=== PATIENT | female | born 1990 | race Caucasian/White ===

== ENCOUNTER 2017-03-09 23:41 | Emergency (ER) | payer BC ==
[~2017-03-09] VITALS: Ht 170.2 cm; Wt 77.4 kg
[~2017-03-09 23:41] MED LIST: URIN1STR71
[2017-03-09 23:42] VITALS: BP 137/78
[2017-03-10 00:32] LABS: HCG UR LOT HCG7030192
[2017-03-10 00:41] LABS: HCG UR OBC PASS
[2017-03-10] MEDS ORDERED: IBUPROFEN 200 MG TABLET ONE (01:36)
== END 2017-03-10 02:45 | disposition home or self-care (01) ==
LOC: ED 23:59
DX: S39.012A Strain of muscle, fascia and tendon of lower back, initial encounter (principal); V49.49XA Driver injured in collision with other motor vehicles in traffic accident, initial encounter; Y93.89 Activity, other specified; Y92.89 Other specified places as the place of occurrence of the external cause; Y99.8 Other external cause status
CPT/HCPCS: 72110; 81003; 81025; 99285

== ENCOUNTER 2017-08-29 09:31 | Emergency (ER) | payer BC, OTHER ==
[~2017-08-29] VITALS: Ht 170.2 cm; Wt 85.2 kg
[2017-08-29] MEDS ORDERED: HYDR-3240 PO (09:58)
[2017-08-29] MEDS ORDERED: GABA300C10 PO (09:58)
[2017-08-29] MEDS ORDERED: CEFTRIAXONE PMX 1GM/50ML 50 ML IV ONE (10:00)
[2017-08-29] MEDS ORDERED: SODIUM CHLORIDE FLUSH 10ML SYR IVF ONE (10:00)
[2017-08-29] MEDS ORDERED: CLINDAMYCIN 300 MG CAPSULE ONE (10:22)
[2017-08-29] MEDS ORDERED: CLINDAMYCIN 300 MG CAPSULE PO ONE (10:30)
[2017-08-29 10:40] VITALS: BP 118/77
== END 2017-08-29 10:44 | disposition home or self-care (01) ==
LOC: ED 10:23
DX: L03.211 Cellulitis of face (principal)
CPT/HCPCS: 99283

== ENCOUNTER 2018-07-30 15:45 | Outpatient (CLI) | payer BC, OTHER ==
[~2018-07-30] VITALS: Ht 170.2 cm; Wt 104.1 kg
[~2018-07-30 15:45] MED LIST changes: +GABA300C10 PO; +HYDR-3240 PO
== END 2018-07-30 17:19 | disposition home or self-care (01) ==
LOC: LDOP 15:45
PROVIDERS: ATTEND Obstetrics & Gynecology
DX: O42.92 Full-term premature rupture of membranes, unspecified as to length of time between rupture and onset of labor (principal); O62.8 Other abnormalities of forces of labor; Z3A.32 32 weeks gestation of pregnancy; R45.4 Irritability and anger
CPT/HCPCS: 59025; 89060; 99211; G0463; Q0114

== ENCOUNTER 2018-08-12 09:08 | Inpatient (IN) | payer OTHER ==
[~2018-08-12] VITALS: Ht 172.7 cm; Wt 105.5 kg
[2018-08-12] MEDS ORDERED: OXYTOCIN 30U/ 0.9% NaCL 500ML 500 ML IV PRN (09:09)
[2018-08-12] MEDS ORDERED: D5%-LACTATED RINGERS 1,000 ML IV SCH (09:09)
[2018-08-12] MEDS ORDERED: OXYTOCIN 30U/ 0.9% NaCL 500ML 500 ML IV ONE (09:09)
[2018-08-12] MEDS ORDERED: METOCLOPRAMIDE 5 MG/ML, 2ML IVPush PRN (09:30)
[2018-08-12] MEDS ORDERED: FENTANYL PF 100 MCG/2ML IV PRN (09:30)
[2018-08-12] MEDS ORDERED: FENTANYL PF 100 MCG/2ML IVPush PRN (09:30)
[2018-08-12] MEDS ORDERED: ONDANSETRON 2MG/ML, 2ML IVPush PRN (09:30)
[2018-08-12] MEDS ORDERED: SODIUM CITRATE/CITRIC ACID 30 ML UDC PO PRN (09:30)
[2018-08-12] MEDS ORDERED: MISOPROSTOL 200 MCG TABLET ONE (09:32)
[2018-08-12] MEDS ORDERED: NEWBORN KIT ONE (09:32)
[2018-08-12] MEDS ORDERED: LIDOCAINE 1%, 20ML ONE (09:32)
[2018-08-12] MEDS ORDERED: OXYTOCIN 30U/ 0.9% NaCL 500ML 500 ML ONE ×3 (09:32→19:20)
[2018-08-12 09:42] LABS: BASOPHILS # (AUTO) 0.01 x10^3/uL (0-0.1); BASOPHILS % (AUTO) 0 % (0-1); EOSINOPHILS # (AUTO) 0.04 x10^3/uL (0-0.4); EOSINOPHILS % (AUTO) 0 % (1-7); LYMPHOCYTES # (AUTO) 2.31 x10^3/uL (1-3.4); LYMPHOCYTES % (AUTO) 22 % (22-44); MD NO; MEAN PLATELET VOLUME 7.5 fL (7.4-10.4); MONOCYTES # (AUTO) 0.91 x10^3/uL (0.2-0.8); MONOCYTES % (AUTO) 9 % (2-9); NEUTROPHILS # (AUTO) 7.26 x10^3/uL (1.8-6.8); NEUTROPHILS % (AUTO) 69 % (42-75); PLATELET COUNT 264 x10^3/uL (130-400); RED BLOOD COUNT 4.22 x10^6/uL (3.82-5.3); RED CELL DISTRIBUTION WIDTH 13.9 % (9.6-15.2)
[2018-08-12 09:43] VITALS: BP 155/81
[2018-08-12] MEDS: LACTATED RINGERS 1,000 ML IV SCH ×2 (10:06→15:14)
[2018-08-12] MEDS ORDERED: FENTANYL PF 100 MCG/2ML ONE (15:07)
[2018-08-12] MEDS ORDERED: LACTATED RINGERS 1,000 ML IV SCH ×2 (15:14→16:25)
[2018-08-12] MEDS ORDERED: FENTANYL/BUPIV./NS/PF 250 ML EPIDCONT SCH ×2 (15:14→16:25)
[2018-08-12] MEDS ORDERED: LACTATED RINGERS 1,000 ML IVBOLUS PRN ×2 (15:30→16:30)
[2018-08-12] MEDS ORDERED: FENTANYL PF 500 MCG, BUPIVACAINE/PF 0.5%, 30ML 62.5 ML in SODIUM CHLORIDE 0.9% 177.5 ML EPIDCONT SCH (15:30)
[2018-08-12] MEDS ORDERED: FENTANYL/BUPIV./NS/PF 250 ML EPIDCONT ONE (15:56)
[2018-08-12] MEDS ORDERED: BUPIVACAINE 0.25% ONE (15:56)
[2018-08-12] MEDS ORDERED: NALOXONE 0.4 MG/ML, 1ML IVPush PRN (16:30)
[2018-08-12] MEDS ORDERED: EPHEDRINE 50 MG/ML, 1ML IVPush PRN (16:30)
[2018-08-12] MEDS: OXYTOCIN 30U/ 0.9% NaCL 500ML 500 ML IV SCH (18:05)
[2018-08-12] MEDS ORDERED: ONDANSETRON 2MG/ML, 2ML IV PRN (18:30)
[2018-08-12] MEDS ORDERED: MISOPROSTOL 200 MCG TABLET PR PRN (18:30)
[2018-08-12] MEDS ORDERED: DOCUSATE 100 MG CAPSULE PO PRN (18:30)
[2018-08-12 21:00] VITALS: BP 119/79
[2018-08-12] MEDS: IBUPROFEN 600 MG TABLET PO PRN (21:24)
[2018-08-12] MEDS: OXYcodone/APAP 5/325MG TABLET PO PRN (23:00)
[2018-08-12 23:30] VITALS: BP 132/70
[2018-08-13 02:32] LABS: BASOPHILS # (AUTO) 0.07 x10^3/uL (0-0.1); BASOPHILS % (AUTO) 1 % (0-1); EOSINOPHILS % (AUTO) 1 % (1-7); LYMPHOCYTES # (AUTO) 2.71 x10^3/uL (1-3.4); LYMPHOCYTES % (AUTO) 17 % (22-44); MD NO; MEAN CORPUSCULAR HEMOGLOBIN 31.1 pg (27.0-34.8); MEAN CORPUSCULAR HGB CONC 34.2 g/dL (32.4-35.8); MEAN CORPUSCULAR VOLUME 91.1 fL (80-100); MEAN PLATELET VOLUME 7.4 fL (7.4-10.4); MONOCYTES # (AUTO) 1.14 x10^3/uL (0.2-0.8); MONOCYTES % (AUTO) 7 % (2-9); NEUTROPHILS # (AUTO) 11.65 x10^3/uL (1.8-6.8); NEUTROPHILS % (AUTO) 74 % (42-75); PLATELET COUNT 224 x10^3/uL (130-400); RED BLOOD COUNT 3.65 x10^6/uL (3.82-5.3); RED CELL DISTRIBUTION WIDTH 13.9 % (9.6-15.2)
[2018-08-13] MEDS: OXYTOCIN 30U/ 0.9% NaCL 500ML 500 ML IV SCH (04:05)
[2018-08-13] MEDS: OXYcodone/APAP 5/325MG TABLET PO PRN ×3 (04:28→15:13)
[2018-08-13] MEDS: IBUPROFEN 600 MG TABLET PO PRN ×2 (04:28→15:13)
[2018-08-13 04:30] VITALS: BP 120/75
[2018-08-13 08:00] VITALS: BP 105/68
[2018-08-13] MEDS ORDERED: PRENATAL VIT/IRON/FA 1 EACH TABLET PO SCH (09:00)
[2018-08-13 11:55] VITALS: BP 130/85
[2018-08-13] MEDS ORDERED: IBUP-1223 PO (17:24)
== END 2018-08-13 19:50 | disposition home or self-care (01) | DRG 807 ==
LOC: LDIP 09:08 → 2NW 19:50
PROVIDERS: ADMIT Obstetrics & Gynecology; ATTEND Obstetrics & Gynecology
PROC: 10E0XZZ Delivery of Products of Conception, External Approach (ICD-10-PCS; principal; 2018-08-12)
PROC: 0HQ9XZZ Repair Perineum Skin, External Approach (ICD-10-PCS; 2018-08-12)
PROC: 10907ZC Drainage of Amniotic Fluid, Therapeutic from Products of Conception, Via Natural or Artificial Opening (ICD-10-PCS; 2018-08-12)
PROC: 10H07YZ Insertion of Other Device into Products of Conception, Via Natural or Artificial Opening (ICD-10-PCS; 2018-08-12)
PROC: 3E0R3BZ Introduction of Anesthetic Agent into Spinal Canal, Percutaneous Approach (ICD-10-PCS; 2018-08-12)
PROC: 00HU33Z Insertion of Infusion Device into Spinal Canal, Percutaneous Approach (ICD-10-PCS; 2018-08-12)
DX: O70.0 First degree perineal laceration during delivery (principal); Z37.0 Single live birth; Z3A.39 39 weeks gestation of pregnancy
CPT/HCPCS: 36415; 85025; 86850; 86900; G0378; J3010; J3490; J2590; J7120

== ENCOUNTER 2019-03-27 17:57 | Emergency (ER) | payer OTHER ==
[~2019-03-27 17:57] MED LIST changes: +IBUP-1223 PO
--- NOTE | 2019-03-27 18:35 | NUR ---
[email or web address]
--- NOTE | 2019-03-27 18:50 | NUR ---
[employer]: NOT IN LOBBY
== END 2019-03-27 19:09 | disposition left against medical advice (07) ==
LOC: ED 19:00
DX: M54.9 Dorsalgia, unspecified (principal); Z53.21 Procedure and treatment not carried out due to patient leaving prior to being seen by health care provider

== ENCOUNTER 2020-11-03 11:29 | Outpatient (CLI) | payer OTHER ==
[~2020-11-03] VITALS: Ht 172.7 cm; Wt 112.0 kg
[~2020-11-03 11:29] MED LIST changes: +HYDR-2214 PO; -HYDR-3240 PO
[2020-11-03 11:55] LABS: MICROSCOPIC INDICATED
[2020-11-03 11:58] LABS: BASOPHILS % (AUTO) 0 % (0-1); EOSINOPHILS % (AUTO) 0 % (1-7); LYMPHOCYTES % (AUTO) 17 % (22-44); MEAN CORPUSCULAR HEMOGLOBIN 29.7 pg (27.0-34.8); MEAN CORPUSCULAR HGB CONC 33.8 g/dL (32.4-35.8); MEAN PLATELET VOLUME 7.4 fL (7.4-10.4); MONOCYTES % (AUTO) 7 % (2-9); NEUTROPHILS % (AUTO) 76 % (42-75); PLATELET COUNT 238 x10^3/uL (130-400); RED BLOOD COUNT 3.87 x10^6/uL (3.82-5.3); RED CELL DISTRIBUTION WIDTH 13.3 % (9.6-15.2)
[2020-11-03 11:59] LABS: MD NO
[2020-11-03 12:09] LABS: ALBUMIN 2.9 g/dL (3.4-5.0); ANION GAP 10 mmol/L (5-15); CALCIUM 8.4 mg/dL (8.5-10.1); CHLORIDE 108 mmol/L (98-107)
[2020-11-03 12:13] LABS: ALANINE AMINOTRANSFERASE 12 U/L (12-78); ALKALINE PHOSPHATASE 109 U/L (45-117); BILIRUBIN,TOTAL 0.4 mg/dL (0.2-1.0); TOTAL PROTEIN 6.7 g/dL (6.4-8.2)
[2020-11-03 12:17] LABS: BILIRUBIN, DIRECT < 0.1 mg/dL (0.1-0.2)
[2020-11-03 13:02] LABS: CREATININE,URINE RANDOM < 13.00 mg/dL; TOTAL PROTEIN,URINE RANDOM < 5 mg/dL (0-12)
== END 2020-11-03 14:38 | disposition home or self-care (01) ==
LOC: LDOP 11:29
PROVIDERS: ATTEND Obstetrics & Gynecology
DX: O16.3 Unspecified maternal hypertension, third trimester (principal); Z3A.34 34 weeks gestation of pregnancy
CPT/HCPCS: 36415; 59025; 80053; 81001; 82248; 82570; 84156; 84550; 85025

== ENCOUNTER 2020-11-12 21:21 | Inpatient (IN) | payer OTHER ==
[~2020-11-12] VITALS: Ht 172.7 cm; Wt 113.6 kg
[2020-11-12 22:02] VITALS: BP 164/88
[2020-11-12 22:24] LABS: MICROSCOPIC INDICATED
[2020-11-12 22:25] LABS: BASOPHILS % (AUTO) 0 % (0-1); EOSINOPHILS % (AUTO) 0 % (1-7); LYMPHOCYTES % (AUTO) 21 % (22-44); MEAN CORPUSCULAR HEMOGLOBIN 29.5 pg (27.0-34.8); MEAN CORPUSCULAR HGB CONC 33.9 g/dL (32.4-35.8); MEAN PLATELET VOLUME 7.6 fL (7.4-10.4); MONOCYTES % (AUTO) 9 % (2-9); NEUTROPHILS % (AUTO) 69 % (42-75); PLATELET COUNT 258 x10^3/uL (130-400); RED BLOOD COUNT 3.77 x10^6/uL (3.82-5.3); RED CELL DISTRIBUTION WIDTH 13.3 % (9.6-15.2)
[2020-11-12 22:26] LABS: ALBUMIN 2.7 g/dL (3.4-5.0); ANION GAP 12 mmol/L (5-15); CALCIUM 8.2 mg/dL (8.5-10.1); CHLORIDE 106 mmol/L (98-107)
[2020-11-12 22:30] LABS: ALANINE AMINOTRANSFERASE 17 U/L (12-78); ALKALINE PHOSPHATASE 107 U/L (45-117); BILIRUBIN,TOTAL 0.2 mg/dL (0.2-1.0); TOTAL PROTEIN 6.6 g/dL (6.4-8.2)
[2020-11-12] MEDS ORDERED: LABETALOL 200 MG TABLET PO STA (22:41)
[2020-11-12 22:48] LABS: CREATININE,URINE RANDOM 50.1 mg/dL
[2020-11-12] MEDS ORDERED: LABETALOL 200 MG TABLET ONE (22:51)
[2020-11-12] MEDS ORDERED: FENTANYL PF 100 MCG/2ML IV PRN (23:00)
[2020-11-12] MEDS ORDERED: FENTANYL PF 100 MCG/2ML IVPush PRN (23:00)
[2020-11-12] MEDS ORDERED: PENICILLIN GK 5,000,000 UNITS in DEXTROSE 5% 100 ML IVPB ONE (23:00)
[2020-11-12] MEDS: MAGNESIUM SULF. PMX 20GM/500ML 500 ML IV SCH (23:00)
[2020-11-12] MEDS ORDERED: MAGNESIUM SULFATE PMX 4GM/100M 100 ML IVPB ONE (23:00)
[2020-11-12] MEDS ORDERED: TERBUTALINE 1 MG/ML, 1ML SQ PRN (23:00)
[2020-11-12] MEDS ORDERED: OXYTOCIN 30U/ 0.9% NaCL 500ML 500 ML IV ONE (23:00)
[2020-11-12] MEDS ORDERED: ONDANSETRON 2MG/ML, 2ML IVPush PRN (23:00)
[2020-11-12] MEDS ORDERED: TERBUTALINE 1 MG/ML, 1ML IVPush PRN (23:00)
[2020-11-12] MEDS: LACTATED RINGERS 1,000 ML IV SCH (23:10)
[2020-11-13] MEDS: OXYTOCIN 30U/ 0.9% NaCL 500ML 500 ML IV PRN (01:15)
[2020-11-13] MEDS ORDERED: LIDOCAINE 1%, 20ML ONE (04:06)
[2020-11-13] MEDS ORDERED: MISOPROSTOL 200 MCG TABLET ONE (04:06)
[2020-11-13] MEDS: PENICILLIN GK 2,500,000 UNITS in DEXTROSE 5% 100 ML IVPB SCH ×4 (04:33→12:19)
[2020-11-13] MEDS ORDERED: CALCIUM CARBONATE 500 MG TAB.CHEW PO PRN (06:30)
[2020-11-13] MEDS ORDERED: DOCUSATE 100 MG CAPSULE PO PRN (06:30)
[2020-11-13] MEDS ORDERED: KETOROLAC 30 MG/1 ML IV SCH (06:30)
[2020-11-13] MEDS ORDERED: OXYcodone IR 5MG TABLET PO PRN ×3 (06:30→09:30)
[2020-11-13] MEDS ORDERED: LACTATED RINGERS 1,000 ML IV SCH ×3 (06:30→08:30)
[2020-11-13] MEDS ORDERED: IBUPROFEN 600 MG TABLET PO SCH (06:30)
[2020-11-13] MEDS ORDERED: ONDANSETRON 2MG/ML, 2ML IV PRN (06:30)
[2020-11-13] MEDS ORDERED: SIMETHICONE 80 MG CHEW TAB PO PRN ×2 (06:30→13:30)
[2020-11-13] MEDS ORDERED: morphine SULFATE 10 MG/ML, 1ML IM PRN (06:30)
[2020-11-13] MEDS ORDERED: MISOPROSTOL 200 MCG TABLET PR PRN ×2 (06:30→13:30)
[2020-11-13] MEDS ORDERED: OXYTOCIN 30U/ 0.9% NaCL 500ML 500 ML IV SCH ×2 (06:30→13:30)
[2020-11-13] MEDS ORDERED: BISACODYL 10 MG SUPP PR PRN (06:30)
[2020-11-13] MEDS ORDERED: MORPHINE SULFATE 4 MG/ML, 1ML IVPush PRN (06:30)
[2020-11-13] MEDS ORDERED: ACETAMINOPHEN 325 MG TABLET PO SCH (06:30)
[2020-11-13] MEDS ORDERED: ACETAMINOPHEN 500 MG TABLET ONE (07:14)
[2020-11-13] MEDS ORDERED: ACETAMINOPHEN 500 MG TABLET PO ONE (07:30)
[2020-11-13] MEDS ORDERED: FENTANYL/BUPIV./NS/PF 250 ML EPIDCONT ONE (07:35)
[2020-11-13] MEDS ORDERED: BUPIVACAINE 0.25% ONE (07:35)
[2020-11-13] MEDS: LACTATED RINGERS 1,000 ML IV SCH (07:48)
[2020-11-13] MEDS ORDERED: FENTANYL/BUPIV./NS/PF 250 ML EPIDCONT SCH (08:30)
[2020-11-13] MEDS ORDERED: ONDANSETRON 2MG/ML, 2ML IVPush PRN (08:30)
[2020-11-13] MEDS ORDERED: DIPHENHYDRAMINE 50 MG/ML, 1ML IVPush PRN (08:30)
[2020-11-13] MEDS ORDERED: LACTATED RINGERS 1,000 ML IVBOLUS PRN (08:30)
[2020-11-13] MEDS ORDERED: NALOXONE 0.4 MG/ML, 1ML IVPush PRN (08:30)
[2020-11-13] MEDS ORDERED: EPHEDRINE 50 MG/ML, 1ML IVPush PRN (08:30)
[2020-11-13] MEDS ORDERED: PRENATAL VIT/IRON/FA 1 EACH TABLET PO SCH (09:00)
[2020-11-13] MEDS ORDERED: OXYcodone IR 5MG TABLET ONE (09:17)
[2020-11-13] MEDS ORDERED: DIPHENHYDRAMINE 25 MG CAPSULE ONE (09:26)
[2020-11-13] MEDS ORDERED: DIPHENHYDRAMINE 25 MG CAPSULE PO ONE (09:30)
[2020-11-13] MEDS: PROCHLORPERAZINE 10MG TABLET PO PRN ×2 (09:45→13:30)
[2020-11-13 10:09] VITALS: BP 127/61
[2020-11-13] MEDS: LABETALOL 200 MG TABLET PO SCH ×2 (10:10→20:12)
[2020-11-13] MEDS: MAGNESIUM SULF. PMX 20GM/500ML 500 ML IV SCH ×3 (10:58→21:21)
[2020-11-13] MEDS ORDERED: ACETAMINOPHEN 325 MG TABLET PO PRN (13:30)
[2020-11-13] MEDS ORDERED: IBUPROFEN 600 MG TABLET PO PRN (13:30)
[2020-11-13] MEDS ORDERED: METOCLOPRAMIDE 5 MG/ML, 2ML IV PRN (13:30)
[2020-11-13] MEDS ORDERED: CARBOPROST TROMETHAMINE 250 MCG/ML, 1ML IM PRN (13:30)
[2020-11-13] MEDS ORDERED: DIPH,PERTUSS(ACELL),TET VAC/PF NC IM-VACC PRN (13:30)
[2020-11-13] MEDS ORDERED: DIPHENHYDRAMINE 25 MG CAPSULE PO PRN (14:00)
[2020-11-13] MEDS: OXYcodone/APAP 5/325MG TABLET PO PRN ×2 (16:20→23:56)
[2020-11-13 20:00] VITALS: BP 122/61
[2020-11-13] MEDS: DOCUSATE 100 MG CAPSULE PO PRN (20:12)
[2020-11-14] MEDS: OXYcodone/APAP 5/325MG TABLET PO PRN ×3 (05:35→20:12)
[2020-11-14] MEDS: MAGNESIUM SULF. PMX 20GM/500ML 500 ML IV SCH (07:48)
[2020-11-14] MEDS: LABETALOL 200 MG TABLET PO SCH ×2 (07:54→18:11)
[2020-11-14] MEDS ORDERED: LACTATED RINGERS 1,000 ML IV SCH ×2 (08:00→08:02)
[2020-11-14] MEDS ORDERED: PRENATAL VIT/IRON/FA 1 EACH TABLET PO SCH (09:00)
[2020-11-14] MEDS: ACETAMINOPHEN 325 MG TABLET PO PRN (13:30)
[2020-11-14 16:06] VITALS: BP 121/69
[2020-11-14 18:11] VITALS: BP 129/66
[2020-11-14 19:59] LABS: BASOPHILS % (AUTO) 1 % (0-1); EOSINOPHILS % (AUTO) 1 % (1-7); LYMPHOCYTES % (AUTO) 19 % (22-44); MEAN CORPUSCULAR HEMOGLOBIN 29.1 pg (27.0-34.8); MEAN CORPUSCULAR HGB CONC 33.2 g/dL (32.4-35.8); MEAN PLATELET VOLUME 7.2 fL (7.4-10.4); MONOCYTES % (AUTO) 7 % (2-9); NEUTROPHILS % (AUTO) 73 % (42-75); PLATELET COUNT 266 x10^3/uL (130-400); RED BLOOD COUNT 3.43 x10^6/uL (3.82-5.3); RED CELL DISTRIBUTION WIDTH 13.5 % (9.6-15.2)
[2020-11-14] MEDS: DOCUSATE 100 MG CAPSULE PO PRN (20:12)
[2020-11-15] VITALS: BP 130/73
[2020-11-15] MEDS: OXYcodone/APAP 5/325MG TABLET PO PRN ×2 (00:10→05:35)
[2020-11-15 04:45] VITALS: BP 111/62
[2020-11-15] MEDS: ACETAMINOPHEN 325 MG TABLET PO PRN (05:35)
[2020-11-15] MEDS ORDERED: OXYTOCIN 30U/ 0.9% NaCL 500ML 500 ML IV SCH (07:30)
[2020-11-15] MEDS ORDERED: ACETAMINOPHEN 325 MG TABLET PO PRN ×2 (07:30)
[2020-11-15] MEDS ORDERED: SIMETHICONE 80 MG CHEW TAB PO PRN (07:30)
[2020-11-15] MEDS ORDERED: OXYcodone/APAP 5/325MG TABLET PO PRN ×2 (07:30)
[2020-11-15] MEDS ORDERED: IBUPROFEN 600 MG TABLET PO PRN (07:30)
[2020-11-15] MEDS ORDERED: DOCUSATE 100 MG CAPSULE PO PRN (07:30)
[2020-11-15 08:16] VITALS: BP 120/81
[2020-11-15] MEDS: LABETALOL 200 MG TABLET PO SCH (08:22)
[2020-11-15] MEDS ORDERED: PRENATAL VIT/IRON/FA 1 EACH TABLET PO SCH (09:00)
[2020-11-15] MEDS ORDERED: IBUP-1222 PO (11:09)
[2020-11-15] MEDS ORDERED: LABE100T6 PO (11:11)
== END 2020-11-15 13:55 | disposition home or self-care (01) | DRG 807 ==
LOC: LDOP 21:21 → LDIP 22:47 → 2NE 11-13 15:13 → 2NW 11-14 15:45
PROVIDERS: ADMIT Obstetrics & Gynecology; ATTEND Obstetrics & Gynecology
PROC: 10E0XZZ Delivery of Products of Conception, External Approach (ICD-10-PCS; principal; 2020-11-13)
PROC: 3E033VJ Introduction of Other Hormone into Peripheral Vein, Percutaneous Approach (ICD-10-PCS; 2020-11-13)
PROC: 10907ZC Drainage of Amniotic Fluid, Therapeutic from Products of Conception, Via Natural or Artificial Opening (ICD-10-PCS; 2020-11-13)
PROC: 3E0R3BZ Introduction of Anesthetic Agent into Spinal Canal, Percutaneous Approach (ICD-10-PCS; 2020-11-13)
PROC: 00HU33Z Insertion of Infusion Device into Spinal Canal, Percutaneous Approach (ICD-10-PCS; 2020-11-13)
DX: O14.14 Severe pre-eclampsia complicating childbirth (principal); Z37.0 Single live birth; O99.824 Streptococcus B carrier state complicating childbirth; Z3A.35 35 weeks gestation of pregnancy; Z80.0 Family history of malignant neoplasm of digestive organs; Z80.3 Family history of malignant neoplasm of breast; O99.214 Obesity complicating childbirth; E66.9 Obesity, unspecified; Z23 Encounter for immunization; Z20.822 Contact with and (suspected) exposure to COVID-19
CPT/HCPCS: 36415; Q0164; 80053; 81001; 82570; 83735; 84156; 84550; 85025; 86592; 86850; 86900; 87635; G0378; J2405; J2540; J2590; J3475; J7120; Q0163